=== PATIENT | female | born 1950 | race Caucasian/White ===

== ENCOUNTER → 2021-10-17 10:41 | Outpatient (CLI) | payer OTHER, SELFPAY ==
[2021-10-17 11:42] LABS: Hematocrit 43.7 % (37-47); Hemoglobin 14.5 g/dL (12.0-15.0); Mean Corp Hgb Conc 33.2 g/dL (32-36); Mean Corpuscular Hgb 30.9 pg (27.0-32.0); Mean Platelet Vol. 11.4 fl (6.2-12.0); Platelet Count 240 K/mm3 (150-450); RBC Distribution Width CV 12.7 % (11.6-14.6); RBC Distribution Width SD 43.7 fl (35.1-43.9)
[2021-10-17 11:56] LABS: Anion Gap 5 (5-15); BUN 17 mg/dL (7-18); Calcium,Total 8.8 mg/dL (8.5-10.1); Chloride 107 mmol/L (98-107); Creatinine, Serum 0.94 mg/dL (0.55-1.02); EST Glomerular Filtration Rate 62 mL/min (>60); Est Glom Filt Rate - Afr Amer 75 mL/min (>60); Estradiol 42.4 pg/mL; Follicle Stimulating Hormone 59.8 mIU/mL; Glucose 91 mg/dL (74-106); Luteinizing Hormone 29.6 mIU/mL; Sodium Level 138 mmol/L (136-145); T4 Free Direct 0.91 ng/dL (0.76-1.46)
[2021-10-19 12:34] LABS: Thyroid Stim Hormone (TSH) 0.47 uIU/mL (0.358-3.74)
[2021-10-19 13:35] LABS: Testosterone Free 3.3 pg/mL (0.0-4.2)
== END ==
PROVIDERS: Visit Provider Obstetrics & Gynecology
DX: R53.83 Other fatigue (principal)
CPT/HCPCS: 36415; 80048; 82670; 83001; 83002; 84402; 84439; 84443; 85027

== ENCOUNTER → 2022-01-13 13:29 | Outpatient (CLI) | payer MEDICARE, SELFPAY | DX: N95.9 Unspecified menopausal and perimenopausal disorder (principal) | CPT/HCPCS: 36415 ==

== ENCOUNTER → 2022-06-22 | Outpatient (CLI) | payer MEDICARE, SELFPAY | END | disposition home or self-care (01) | DX: N95.9 Unspecified menopausal and perimenopausal disorder (principal) | CPT/HCPCS: 36415 ==

== ENCOUNTER → 2022-11-21 | Outpatient (CLI) | payer MEDICARE, SELFPAY ==
[2022-11-21 13:25] LABS: Free T3 2.6 pg/mL (2.18-3.98); T4 Free Direct 0.63 ng/dL (0.76-1.46)
[2022-11-22 11:03] LABS: Thyroid Peroxidase AB 62 IU/mL (0-34)
== END | disposition home or self-care (01) ==
DX: E03.9 Hypothyroidism, unspecified (principal)
CPT/HCPCS: 36415; 84439; 84443; 84481; 86376

== ENCOUNTER → 2023-05-09 | Outpatient (CLI) | payer MEDICARE, SELFPAY ==
[2023-05-09 15:52] LABS: T4 Free Direct 0.87 ng/dL (0.76-1.46); Thyroid Stim Hormone (TSH) 0.36 uIU/mL (0.358-3.74)
[2023-05-16 12:09] LABS: Testosterone, % Free 1.93 % (0.50-2.80); Testosterone, Free 3.11 ng/dL (0.10-0.85); Testosterone, Total 161 ng/dL (3-67); Thyroid Peroxidase AB 82 IU/mL (0-34)
== END | disposition home or self-care (01) ==
DX: E03.9 Hypothyroidism, unspecified (principal); N95.9 Unspecified menopausal and perimenopausal disorder
CPT/HCPCS: 36415; 84402; 84403; 84439; 84443; 84481; 86376

== ENCOUNTER → 2023-08-14 | Outpatient (CLI) | payer MEDICARE, SELFPAY ==
[2023-08-14 15:35] LABS: Absolute Lymphocyte Count 3.29 X10^3/uL (0.83-4.51); Absolute Neutrophil Count 6.1 X10^3/uL (2.0-7.7); Basophil# 0.07 X10^3/uL; Basophil% 0.7 % (0-1); Eosinophil# 0.17 X10^3/uL; Eosinophils% 1.6 % (0-5); Hematocrit 45.8 % (37-47); Hemoglobin 14.8 g/dL (12.0-15.0); Lymphocyte # 3.29 X10^3/ul (0.83-4.51); Lymphocyte % 31.7 % (19-41); Mean Corp Hgb Conc 32.3 g/dL (32-36); Mean Corpuscular Hgb 31.3 pg (27.0-32.0); Mean Corpuscular Volume 96.8 fL (81-99); Mean Platelet Vol. 11.1 fl (6.2-12.0); Monocyte# 0.69 X10^3/uL; Monocyte% 6.6 % (0-10); NRBC Flagged by Analyzer 0 % (0-5); Neutrophil # 6.14 X10^3/uL (2.7-7.7); Neutrophil % 59.1 % (47-70); Platelet Count 264 K/mm3 (150-450); RBC Distribution Width CV 13.7 % (11.6-14.6); RBC Distribution Width SD 48.2 fl (35.1-43.9); Red Blood Count 4.73 M/mm3 (4.2-5.4); White Blood Count 10.4 K/mm3 (4.4-11.0)
[2023-08-14 16:07] LABS: Follicle Stimulating Hormone 39.8 mIU/mL; Free T3 3.7 pg/mL (2.18-3.98); T4 Free Direct 0.72 ng/dL (0.76-1.46); Thyroid Stim Hormone (TSH) 0.44 uIU/mL (0.358-3.74)
[2023-08-19 16:07] LABS: Testosterone, % Free 1.26 % (0.50-2.80); Testosterone, Free 1.97 ng/dL (0.10-0.85); Testosterone, Total 156 ng/dL (3-67); Thyroid Peroxidase AB 48 IU/mL (0-34)
== END | disposition home or self-care (01) ==
LOC: MTLAB 13:25
DX: L65.9 Nonscarring hair loss, unspecified (principal); N95.9 Unspecified menopausal and perimenopausal disorder
CPT/HCPCS: 36415; 83001; 84402; 84403; 84439; 84443; 84481; 85025; 86376

== ENCOUNTER 2023-08-31 14:32 | Outpatient (RCR) | payer MEDICARE, SELFPAY ==
[2023-08-31 17:49] LABS: International Normalized Ratio 1.8; Prothrombin Time (Protime)PT. 20.5 SECONDS (11.7-14.9)
== END 2023-08-31 18:00 | disposition home or self-care (01) ==
LOC: MTLAB 14:32
DX: I48.0 Paroxysmal atrial fibrillation (principal)
CPT/HCPCS: 36415; 85610

== ENCOUNTER → 2023-10-29 | Outpatient (CLI) | payer MEDICARE, SELFPAY ==
[2023-10-29 13:03] LABS: Progesterone Level 13.66 ng/mL (See Comment)
[2023-10-29 13:47] LABS: Free T3 3.9 pg/mL (2.18-3.98); T4 Free Direct 0.97 ng/dL (0.76-1.46); Thyroid Stim Hormone (TSH) 0.09 uIU/mL (0.358-3.74)
== END | disposition home or self-care (01) ==
DX: N95.9 Unspecified menopausal and perimenopausal disorder (principal); E03.9 Hypothyroidism, unspecified
CPT/HCPCS: 36415; 84144; 84403; 84439; 84443; 84481

== ENCOUNTER → 2024-08-01 | Outpatient (CLI) | payer MEDICARE, SELFPAY ==
[2024-08-01 15:29] LABS: Hematocrit 45.1 % (37-47); Hemoglobin 14.5 g/dL (12.0-15.0)
[2024-08-01 16:17] LABS: Thyroid Stim Hormone (TSH) 0.399 uIU/mL (0.358-3.740)
[2024-08-02 11:08] LABS: ALB/GLOB Ratio 1.2 RATIO (0.9-2.4); AST(SGOT) 31 U/L (15-37); Alanine Aminotransfer ALT/SGPT 35 U/L (13-56); Albumin, Serum 3.8 g/dL (3.2-5.0); Alkaline Phosphatase 109 U/L (45-117); Anion Gap 10 (5-15); BUN 21 mg/dL (7-18); BUN/Creat Ratio 19.3 RATIO (10-20); Calcium,Total 8.6 mg/dL (8.5-10.1); Chloride 104 mmol/L (98-107); Cholesterol 206 mg/dL (200); Creatinine, Serum 1.09 mg/dL (0.55-1.02); EST Glomerular Filtration Rate 52 mL/min (>60); Est Glom Filt Rate - Afr Amer 63 mL/min (>60); Globulin 3.3 g/dL (2.2-4.2); Glucose 96 mg/dL (74-106); High Density Lipoprotein 61 mg/dL; Potassium 3.7 mmol/L (3.5-5.1); Protein, Total 7.1 g/dL (6.4-8.2); Sodium Level 133 mmol/L (136-145); Triglycerides 320 mg/dL; Very Low Density Lipoprotein 64 mg/dL (5-40)
[2024-08-08 22:07] LABS: Testosterone, % Free 2.07 % (0.50-2.80); Testosterone, Free 3.71 ng/dL (0.10-0.85); Testosterone, Total 179 ng/dL (3-67)
== END | disposition home or self-care (01) ==
LOC: LAB 14:33
PROVIDERS: Referring Provider Registered Nurse; Visit Provider Registered Nurse
DX: R53.83 Other fatigue (principal); R68.82 Decreased libido; R63.5 Abnormal weight gain; R35.0 Frequency of micturition; R39.16 Straining to void; M62.81 Muscle weakness (generalized)
CPT/HCPCS: 36415; 80053; 80061; 84402; 84403; 84443; 85014; 85018

== ENCOUNTER → 2024-08-12 | Outpatient (CLI) | payer MEDICARE, SELFPAY ==
[2024-08-12 12:44] LABS: Estradiol 70.3 pg/mL; Follicle Stimulating Hormone 26.7 mIU/mL; Luteinizing Hormone 14.3 mIU/mL
[2024-08-13 08:13] LABS: DHEA Sulfate 59.3 ug/dL (20.4-186.6); PROLACTIN 9.4 ng/mL (3.6-25.2); Sex Hormone-binding Globulin 58.9 nmol/L (17.3-125.0)
== END | disposition home or self-care (01) ==
LOC: MTLAB 10:48
PROVIDERS: Referring Provider Registered Nurse; Visit Provider Registered Nurse
DX: M62.81 Muscle weakness (generalized) (principal); R53.83 Other fatigue; R68.82 Decreased libido; R63.5 Abnormal weight gain; R39.16 Straining to void; R35.0 Frequency of micturition
CPT/HCPCS: 82627; 82670; 83001; 83002; 84146; 84270; 82626

== ENCOUNTER → 2025-03-13 | Outpatient (CLI) | payer MEDICARE, SELFPAY ==
[2025-03-13 18:44] LABS: Vitamin D,25 Hydroxy 68.7 ng/mL (30-100)
[2025-03-15 07:07] LABS: DHEA Sulfate 80.7 ug/dL (20.4-186.6); PROGESTERONE 0.2 ng/mL (.)
== END | disposition home or self-care (01) ==
LOC: MTLAB 13:35
PROVIDERS: Referring Provider Nurse Practitioner Women's Health; Visit Provider Nurse Practitioner Women's Health
DX: E03.8 Other specified hypothyroidism (principal); E55.9 Vitamin D deficiency, unspecified; N95.1 Menopausal and female climacteric states; R35.81 Nocturnal polyuria
CPT/HCPCS: 36415; 82306; 82627; 82670; 84144; 84403; 84439; 84443; 84481; 82626

== ENCOUNTER → 2025-04-14 | Outpatient (CLI) | payer MEDICARE, SELFPAY ==
[2025-04-14 16:02] LABS: Anion Gap 11 (5-15); BUN 16 mg/dL (4-19); BUN/Creat Ratio 20.4 RATIO (10-20); Calcium,Total 9.2 mg/dL (7.6-11.0); Carbon Dioxide 21.8 mmol/L (21.0-32.0); Chloride 102 mmol/L (98-108); Creatinine, Serum 0.79 mg/dL (0.70-1.20); EST Glomerular Filtration Rate 79 (>60); Glucose 91 mg/dL (70-99); Potassium 4.1 mmol/L (3.3-5.1); Sodium Level 135 mmol/L (133-145)
== END | disposition home or self-care (01) ==
LOC: MTLAB 11:02
PROVIDERS: Referring Provider Specialist; Visit Provider Specialist
DX: Z01.818 Encounter for other preprocedural examination (principal)
CPT/HCPCS: 36415; 80048

== ENCOUNTER → 2025-06-05 | Outpatient (CLI) | payer MEDICARE, SELFPAY ==
[2025-06-05 16:09] LABS: Free T3 5.4 pg/mL (2.18-3.98)
== END | disposition home or self-care (01) ==
LOC: MTLAB 11:32
PROVIDERS: Referring Provider Nurse Practitioner Women's Health; Visit Provider Nurse Practitioner Women's Health
DX: E03.8 Other specified hypothyroidism (principal)
CPT/HCPCS: 36415; 84439; 84443; 84481

== ENCOUNTER 2025-06-29 10:00 | Outpatient (RCR) | payer MEDICARE, SELFPAY ==
--- NOTE | 2025-02-17 16:32 | HP.PTEVAL ---
Patient's Visit Information Visit Information Visit Information: JOSEFINA BARRERA is a 74 year old F referred to Physical Therapy by MODE Young with a diagnosis of PRESENCE OF RIGHT ARTIFICIAL KNEE JOINT, AFTERCARE JOINT REPLACEMENT. Date of Evaluation: 02/17/25 Physical Therapist: Jaxson Braxton, PT, Cert MDT, OCS Visit Plan Frequency: 2-3x /Week Duration: 4-6 Weeks Plan: S/P TKA WITH REPAIR MCL Dec KEEP BRACE ON ALL TIMES ESPECIALLY WHEN WALKING BRACE UNLOCKED FULL ROM PT INTERVENTIONS* FOCUS ON ROM* ,MANUAL THERAPY STICK ROLL QUADS/HAMS/ITMBAND,GAIT TRAINING,BALANCE TRAINING PROGRESS TO STRENGTHENING QUAS/HAMS/HIP ,CP Subjective Subjective: This 74 y/o female presents to physical therapy with right TKA on Jan 20 at [facility] done Dr Huffman . Patient had complication with MCL tore thus repaired MCL along with TKA. Patient was place on knee immobilizer with WBAT with walker . D/C to home Jan [address] 1 week after surgery Donjoy brace locked extension had x-rays looked good . Seen DR last week 02/09/25 and unlocked brace and cont with with FWW and keep brace on all times with walking. RTD March 03. Patient c/o very stiff ,min pain. No pain medication. Edema is better. Patient keeps brace on all times when walking okay for self hygiene shower. Patient lives in 1 story home 1 steps with basement . Patient has walk in shower bench . Patient able bath dress self. Patient does cooking . Patient condition affects QOL and function/gait. SOCIAL: VOCATION: retired Objective Objective: POSTURE: midl forward posture with DONJOY brace unlocked GAIT: Ambulates with fww donjoy brace unlocked WBAT RLE reciprocal pattern decrease stance time RLE GIRTH PATELLA: 38.5 cm GIRTH 6 SUPRAPATELLAR : 42.8 cm NEURO: denies paresthesia/tingling AROM: supine knee flexion 25 -60 degrees [place] MOBS: severe tight MMT: ( peak force) quads 14.8 ,hamstrings 13 .7 hip flexion 16.9 STAIRS: one step at time with rail Balance/Special Test Scores Lower Extremity Functional Score: 13 TUG Test Time Seconds: 22.3 WOMAC Total Score: 33 WOMAC Percentatge: 64.1400 Goals Goal 1:: Patient to be I with HEP for knee TKA Goal Time Frame: 4-6 Weeks Goal 2:: Patient to improve AROM supine knee flexion 10-100 degrees to improve gait Goal Time Frame: 4-6 Weeks Goal 3:: Patient to improve peak force quads/hams /hip by 10# to improve function and gait Goal Time Frame: 4-6 Weeks Goal 4:: Patient to improve WOMAC 10-15 points to improve function Goal Time Frame: 4-6 Weeks Goal 5:: Patient to improve LFES score by 10 points to improve QOL Goal Time Frame: 4-6 Weeks Goal 6:: Patient to ambulate w/o device improved gait pattern reciprocal normal marina. Goal Time Frame: 4-6 Weeks Rehabilitation Potential Physical Therapy Diagnosis: This patient underwent s/p TKA along with repair of MCL on Jan 20 with pain ,decrease ROM ,weakness pain ,impairs gait with barce and ADL thus benefit from skilled PT Rehabilitation Potential: Good Anticipated Interventions Patient/Client Instruction: Educate patient on: Condition and Plan of Care For the Purpose of:: To decrease pain, To increase ROM, To improve muscle performance and motor function, To improve ability to perform ADL's, To increase tolerance to activity/condition/position, To improve ability of physical actions for home/community/work/leisure, To improve health of tissue, To decrease soft tissue restriction, To increase flexibility/ROM, To improve balance and To improve tolerance to ADL's Therapeutic Exercise to Include: Strength training, Endurance training, Balance training, Flexibilty training, Gait and locomotor training, Passive ROM and Active ROM Comment: R KNEE For the Purpose of:: To decrease pain, To increase ROM, To improve muscle performance and motor function, To increase tolerance to activity/condition/position, To improve ability of physical actions for home/community/work/leisure, To improve health of tissue, To decrease soft tissue restriction, To increase flexibility/ROM, To improve balance and To reduce risk of recurrence Manual Therapy Techniques to Include: Soft tissue mobilization Comment: QUADS/HAMS STICK For the Purpose of:: To decrease pain, To increase ROM, To improve health of tissue and To decrease soft tissue restriction Text: Thank you for the opportunity to evaluate your patient. For Medicare and Medicare HMO plans, please review the plan of care and approve it. It will need to be FAXED BACK to us at [phone] for Medicare purposes. For Medicare only, by signing this I certify the plan of care. Please let me know if there are questions or concerns regarding this plan of care. Physician Signature: Date:
--- NOTE | 2025-03-19 14:51 | HP.PTREVAL ---
Re-Evaluation Intro: MODE Young, It has been my pleasure to treat JOSEFINA BARRERA over the last 12 visits for PRESENCE OF RIGHT ARTIFICIAL KNEE JOINT, AFTERCARE JOINT REPLACEMENT. Please see the progress note below for an update on the physical therapy plan of care! Subjective Subjective: Seen ,stated a lot of inflammation thus on medication Medial MCL looks goo Patient alot more pain Objective Objective/Function: Patient will continue to benefit from skilled PT due to pain ,decrease ROM ,edema , weakness thus goals appropriate POSTURE: midl forward posture with DONJOY brace unlocked GAIT: Ambulates donjoy brace unlocked WBAT RLE reciprocal pattern decrease stance time RLE no device GIRTH PATELLA: 39.2 cm GIRTH 6 SUPRAPATELLAR : 42.3cm NEURO: denies paresthesia/tingling AROM: supine knee flexion 20 -80 degrees [place] MOBS: mod tight MMT: ( peak force) quads 14.8 ,hamstrings 13 .7 hip flexion 16.9 STAIRS: one step at time with rail Plan Plan Plan: S/P TKA WITH REPAIR MCL: Dec KEEP BRACE ON ALL TIMES ESPECIALLY WHEN WALKING BRACE UNLOCKED FULL ROM PT INTERVENTIONS* FOCUS ON ROM* ,MANUAL THERAPY STICK ROLL QUADS/HAMS/IT BAND, GAIT TRAINING, BALANCE TRAINING PROGRESS TO STRENGTHENING QUADS/HAMS/HIP , CP ADD VAS0 Balance/Gait/Functional tests Balance/Special Test Scores Lower Extremity Functional Score: 13 TUG Test Time Seconds: 22.3 Tug Test: 20-30sec.=variable mobility WOMAC Total Score: 33 WOMAC Percentage: 64.1400 Goals Goals Goal 1:: Patient to be I with HEP for knee TKA Goal Time Frame: 4-6 Weeks Goal Progress: Progressing Goal 2:: Patient to improve AROM supine knee flexion 10-100 degrees to improve gait Goal Time Frame: 4-6 Weeks Goal Progress: Progressing Goal 3:: Patient to improve peak force quads/hams /hip by 10# to improve function and gait Goal Time Frame: 4-6 Weeks Goal Progress: Progressing Goal 4:: Patient to improve WOMAC 10-15 points to improve function Goal Time Frame: 4-6 Weeks Goal Progress: Progressing Goal 5:: Patient to improve LFES score by 10 points to improve QOL Goal Time Frame: 4-6 Weeks Goal Progress: Progressing Goal 6:: Patient to ambulate w/o device improved gait pattern reciprocal normal [place]. Goal Time Frame: 4-6 Weeks Goal Progress: Progressing Anticipated Interventions Anticipated Interventions Patient/Client Instruction: Educate patient on: Condition and Plan of Care For the Purpose of:: To decrease pain, To increase ROM, To improve muscle performance and motor function, To improve ability to perform ADL's, To increase tolerance to activity/condition/position, To improve ability of physical actions for home/community/work/leisure, To improve health of tissue, To decrease soft tissue restriction, To increase flexibility/ROM, To improve balance and To improve tolerance to ADL's Therapeutic Exercise to Include: Strength training, Endurance training, Balance training, Flexibilty training, Gait and locomotor training, Passive ROM and Active ROM Comment: R KNEE For the Purpose of:: To decrease pain, To increase ROM, To improve muscle performance and motor function, To increase tolerance to activity/condition/position, To improve ability of physical actions for home/community/work/leisure, To improve health of tissue, To decrease soft tissue restriction, To increase flexibility/ROM, To improve balance and To reduce risk of recurrence Manual Therapy Techniques to Include: Soft tissue mobilization Comment: QUADS/HAMS STICK For the Purpose of:: To decrease pain, To increase ROM, To improve health of tissue and To decrease soft tissue restriction Re-Evaluation Ending Re-evaluation ending: Please do not hesitate to contact me at [phone] by phone or if you have questions or concerns regarding this new plan of care! Sincerely, Jaxson Braxton PT, Cert MDT, OCS
--- NOTE | 2025-04-14 15:12 | HP.PTREVAL_ITS ---
Re-Evaluation Intro: MODE Young, It has been my pleasure to treat JOSEFINA BARRERA over the last 21 visits for PRESENCE OF RIGHT ARTIFICIAL KNEE JOINT, AFTERCARE JOINT REPLACEMENT. Please see the progress note below for an update on the physical therapy plan of care! Subjective Subjective: Seen DR Huffman yesterday Plan to have manipulation 04/16/25 Pain is about same D/C brace Dr for PT 5 days/week 2weeks Objective Objective/Function: *Patient will continue to benefit from skilled PT due to pain ,decrease ROM ,edema thus will have manipulation thus skilled PT POSTURE: mild forward posture knees flexed GAIT: Ambulates with cane reciprocal pattern 2 point gait knee flexed right with cane GIRTH PATELLA: 38.7 cm GIRTH 6 SUPRAPATELLAR : 42.3cm NEURO: denies paresthesia/tingling AAROM: supine knee flexion 15 -93 degrees [place] MOBS: mod tight MMT: ( peak force) quads 30.8 ,hamstrings 22.9 hip flexion 28.9 STAIRS: one step at time with rail Plan Plan Plan: *PLAN FOR MANIPULATION 04/16 * -FOCUS ON AGGRESSIVE ROM/STRETCHING 5X/WEEK FOR 2WEEK THEN 3XWEEK S/P TKA WITH REPAIR MCL: Dec PT INTERVENTIONS* FOCUS ON ROM* ,MANUAL THERAPY STICK ROLL QUADS/HAMS/IT BAND, GAIT TRAINING, BALANCE TRAINING PROGRESS TO STRENGTHENING QUADS/HAMS/HIP , CP ADD VAS0 Balance/Gait/Functional tests Balance/Special Test Scores Lower Extremity Functional Score: 39 TUG Test Time Seconds: 22.3 Tug Test: 20-30sec.=variable mobility WOMAC Total Score: 33 WOMAC Percentage: 64.1400 Goals Goals Goal 1:: Patient to be I with HEP for knee TKA Goal Time Frame: 4-6 Weeks Goal Progress: Progressing Goal 2:: Patient to improve AROM supine knee flexion 10-100 degrees to improve gait Goal Time Frame: 4-6 Weeks Goal Progress: Progressing Goal 3:: Patient to improve peak force quads/hams /hip by 10# to improve function and gait Goal Time Frame: 4-6 Weeks Goal Progress: Progressing Goal 4:: Patient to improve WOMAC 10-15 points to improve function Goal Time Frame: 4-6 Weeks Goal Progress: Progressing Goal 5:: Patient to improve LFES score by 10 points to improve QOL( new goal) Goal Time Frame: 4-6 Weeks Goal Progress: Progressing Goal 6:: Patient to ambulate w/o device improved gait pattern reciprocal normal mar[place]. Goal Time Frame: 4-6 Weeks Goal Progress: Progressing Anticipated Interventions Anticipated Interventions Patient/Client Instruction: Educate patient on: Condition and Plan of Care For the Purpose of:: To decrease pain, To increase ROM, To improve muscle performance and motor function, To improve ability to perform ADL's, To increase tolerance to activity/condition/position, To improve ability of physical actions for home/community/work/leisure, To improve health of tissue, To decrease soft tissue restriction, To increase flexibility/ROM, To improve balance and To improve tolerance to ADL's Therapeutic Exercise to Include: Strength training, Endurance training, Balance training, Flexibilty training, Gait and locomotor training, Passive ROM and Active ROM Comment: R KNEE For the Purpose of:: To decrease pain, To increase ROM, To improve muscle perfo rmance and motor function, To increase tolerance to activity/condition/position, To improve ability of physical actions for home/community/work/leisure, To improve health of tissue, To decrease soft tissue restriction, To increase flexibility/ROM, To improve balance and To reduce risk of recurrence Manual Therapy Techniques to Include: Soft tissue mobilization Comment: QUADS/HAMS STICK For the Purpose of:: To decrease pain, To increase ROM, To improve health of tissue and To decrease soft tissue restriction Re-Evaluation Ending Re-evaluation ending: Please do not hesitate to contact me at [phone] by phone or if you have questions or concerns regarding this new plan of care! Sincerely, Jaxson Braxton, PT, Cert MDT, OCS
--- NOTE | 2025-05-15 10:11 | HP.PTREVAL_ITS ---
Re-Evaluation Intro: MODE Young, It has been my pleasure to treat JOSEFINA BARRERA over the last 38 visits for PRESENCE OF RIGHT ARTIFICIAL KNEE JOINT, AFTERCARE JOINT REPLACEMENT. Please see the progress note below for an update on the physical therapy plan of care! Subjective Subjective: Doing good ,ROM better no pain just stiffness Received new order to continue with PT Objective Objective/Function: Patient will continue to benefit from skilled PT due decrease strength,decrease ROM , bit ROM is improving as well as gait thus will have benefit from skilled PT POSTURE: mild forward posture GAIT: Ambulates reciprocal pattern slight decrease swing phase GIRTH PATELLA: 35.7 cm GIRTH 6 SUPRAPATELLAR : 41.1cm NEURO: paresthesia/tingling knee AAROM: supine knee flexion 7 -110 degrees [place] MOBS: min tight MMT: ( peak force) quads 29.6 ,hamstrings 30.. hip flexion 32.9 STAIRS: alternating at time with rail Plan Plan Plan: * MANIPULATION 04/16 * -FOCUS ON AGGRESSIVE ROM/STRETCHING 3xweek for 4weeks S/P TKA WITH REPAIR MCL: Dec PT INTERVENTIONS* FOCUS ON ROM*, MANUAL THERAPY STICK ROLL QUADS/HAMS/IT BAND, GAIT TRAINING, BALANCE TRAINING PROGRESS TO STRENGTHENING QUADS/HAMS/HIP , CP ADD VAS0 Balance/Gait/Functional tests Balance/Special Test Scores Lower Extremity Functional Score: 47 TUG Test Time Seconds: 22.3 Tug Test: 20-30sec.=variable mobility WOMAC Total Score: 33 WOMAC Percentage: 64.1400 Goals Goals Goal 1:: Patient to be I with HEP for knee TKA Goal Time Frame: 4-6 Weeks Goal Progress: Progressing Goal 2:: Patient to improve AROM supine knee flexion 5-115 degrees to improve gait( NEW GAOL) Goal Time Frame: 4-6 Weeks Goal Progress: Progressing Goal 3:: Patient to improve peak force quads/hams /hip by 10# to improve function and gait Goal Time Frame: 4-6 Weeks Goal Progress: Progressing Goal 4:: Patient to improve WOMAC 10-15 points to improve function Goal Time Frame: 4-6 Weeks Goal Progress: Progressing Goal 5:: Patient to improve LFES score by 10 points to improve QOL( new goal) Goal Time Frame: 4-6 Weeks Goal Progress: Progressing Goal 6:: Patient to ambulate w/o device improved gait pattern reciprocal normal mar[place]. Goal Time Frame: 4-6 Weeks Goal Progress: Progressing Anticipated Interventions Anticipated Interventions Patient/Client Instruction: Educate patient on: Condition and Plan of Care For the Purpose of:: To decrease pain, To increase ROM, To improve muscle performance and motor function, To improve ability to perform ADL's, To increase tolerance to activity/condition/position, To improve ability of physical actions for home/community/work/leisure, To improve health of tissue, To decrease soft tissue restriction, To increase flexibility/ROM, To improve balance and To improve tolerance to ADL's Therapeutic Exercise to Include: Strength training, Endurance training, Balance training, Flexibilty training, Gait and locomotor training, Passive ROM and Active ROM Comment: R KNEE For the Purpose of:: To decrease pain, To increase ROM, To improve muscle performance and motor function, To increase tolerance to activity /condition/position, To improve ability of physical actions for home/community/work/leisure, To improve health of tissue, To decrease soft tissue restriction, To increase flexibility/ROM, To improve balance and To reduce risk of recurrence Manual Therapy Techniques to Include: Soft tissue mobilization Comment: QUADS/HAMS STICK For the Purpose of:: To decrease pain, To increase ROM, To improve health of tissue and To decrease soft tissue restriction Re-Evaluation Ending Re-evaluation ending: Please do not hesitate to contact me at [phone] by phone or if you have questions or concerns regarding this new plan of care! Sincerely, Jaxson Braxton PT, Cert MDT, OCS
--- NOTE | 2025-06-29 10:31 | HP.PTDCSUM ---
Discharge Summary D/C summary: It has been my pleasure to treat JOSEFINA BARRERA referred by MODE Young, with the diagnosis of PRESENCE OF RIGHT ARTIFICIAL KNEE JOINT, AFTERCARE JOINT REPLACEMENT for a total of 55 visit(s). Discharge Date: 06/29/25 Please see the following information for a summary of their discharge status. Subjective Subjective: Doing well ,ready for d/c Pain R knee: Pain Intensity (Out of 10): 0 Overall Improvement % Improvement: 90 Objective Objective/Function: GAIT: reciprocal pattern AROM: 5-113 degrees supine knee flexion MMT: ( peak force ) quads 31.2,hamstrings 37.3 STAIRS: alternating Goals Goal 1:: Patient to be I with HEP for knee TKA Goal Progress: Goal Met Goal 2:: Patient to improve AROM supine knee flexion 5-115 degrees to improve gait( NEW GAOL) Goal Progress: Goal Met Goal 3:: Patient to improve peak force quads/hams /hip by 10# to improve function and gait Goal Progress: Goal Met Goal 4:: Patient to improve WOMAC 10-15 points to improve function Goal Progress: Goal Met Goal 5:: Patient to improve LFES score by 10 points to improve QOL( new goal) Goal Progress: Goal Met Goal 6:: Patient to ambulate w/o device improved gait pattern reciprocal normal marina. Goal Progress: Goal Met Plan Plan: d/c to GYM program and JEP D/C Information Discharge Comments: HEP d/c sentence: If there are questions or concerns regarding this patient's physical therapy, please feel free to call me at [phone]. Thank you for the referral of this patient. Sincerely, Jaxson Braxton, PT, Cert MDT, OCS Balance/Gait/Functional tests Balance/Special Test Scores Lower Extremity Functional Score: 63 TUG Test Time Seconds: 22.3 Tug Test: 20-30sec.=variable mobility WOMAC Total Score: 1 WOMAC Percentage: 98.9600 Improvement % Improvement: 90
== END 2025-06-29 19:00 | disposition home or self-care (01) ==
LOC: PT 10:00
DX: Z47.1 Aftercare following joint replacement surgery (principal); Z96.651 Presence of right artificial knee joint
CPT/HCPCS: 97016; 97110; 97140; 97162; 97530